=== PATIENT | male | born 1995 | race Caucasian/White ===

== ENCOUNTER → 2021-03-02 00:01 | Outpatient (BNVA) | payer SELFPAY | PROVIDERS: Visit Provider Nurse Practitioner Family | DX: R53.83 Other fatigue (principal); E78.5 Hyperlipidemia, unspecified; R00.2 Palpitations | CPT/HCPCS: 80053; 80061; 84443; 85025 ==

== ENCOUNTER → 2021-09-30 11:03 | Outpatient (BNVA) | payer SELFPAY | PROVIDERS: Visit Provider Emergency Medicine | DX: J02.9 Acute pharyngitis, unspecified (principal) | CPT/HCPCS: 87071; 87635; 87880 ==